=== PATIENT | female | born 1940 | race Caucasian/White ===

== ENCOUNTER 2025-03-25 07:33 | Outpatient (REF) | payer SELFPAY ==
[2025-03-25 07:40] LABS: MANUAL DIFF FLAG NO
--- OUTSIDE RECORDS SUMMARY | 2025-03-25 07:41 | XMS_ITS | Clinical Summary ---
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 Name Role Phone Kirk Flores MD Primary Care Provider [phone] Medical History Medical History Date Comments Essential hypertension DX:Essent ial hypertension Thyroid disorder DX:Thyroid diso rder Asthma DX:Asthma Social History Tobacco Use Types Packs/Day Years Used Date Smoking Tobacco: Former Cigarettes 0 Q uit: 08/15/1990 Smokeless Tobacco: Never Alcohol Use Standard Drinks/Week Comments Not Asked 0 (1 standard drink = 0.6 oz pur e alcohol) Comments Unknown Sex and Gender Information Value Date Recorded Sex Assigned at Not on file Legal Sex Female 2:40 PM EST Gender Identity Not on file Sexual Orientation Not on file Last Filed Vital Signs Vital Sign Reading Time Taken Comments Blood Pressure - - Pulse - - Temperature - - Respiratory Rate - - Oxygen Saturation - - Inhaled Oxygen Concentration - - Weight 117 kg (258 lb) 08/12/2021 2:01 PM EDT Height 165.1 cm (5' 5 ) 08/12/2021 2:01 PM EDT Body Mass Index 42.93 08/12/2021 2:01 PM EDT Plan of Treatment Health Maintenance Due Date Last Done Comments DTaP,Tdap,and Td Vaccines (1 - Tdap) 1960 Zoster Vaccines (1 of 2) 1991 RSV Immunization Adult Patients (1 - 1-dose 75+ series) 2016 Pneumococcal Vaccine: 50+ Years (2 of 2 - PCV) 06/13/2019 06/12/2018 Cholesterol Screening (Lipid Panel) 03/08/2022 Falls Risk Assessment 03/08/2022 Osteoporosis Screening (Bone Density Screening) 03/08/2022 Social Influencers of Health Screening 03/08/2022 Hypertension/CHF/CAD Annual BMP Blood Test 03/24/2022 Medicare Annual Wellness Visit 10/03/2023 10/02/2022 Depression Screening 04/09/2024 COVID-19 Vaccine ( season) 2024 Influenza Vaccine (#1) 2024 3, 01/17/2022, 01/03/2021, Additional history exists HIB Vaccines Aged Out No longer eligi ble based on patient's age to complete this topic HPV Vaccines Aged Out No longer eligi ble based on patient's age to complete this topic Hepatitis A Vaccines Aged Out No long er eligible based on patient's age to complete this topic Hepatitis B Vaccines Aged Out No long er eligible based on patient's age to complete this topic IPV Vaccines Aged Out No longer eligi ble based on patient's age to complete this topic MMR Vaccines Aged Out No longer eligi ble based on patient's age to complete this topic Meningococcal ACWY Vaccine Aged Out N o longer eligible based on patient's age to complete this topic Meningococcal B Vaccine Aged Out No l onger eligible based on patient's age to complete this topic RSV Immunization Patients Under 20 months Aged Out No longer eligible based on patient's age to complete this topic Varicella Vaccines Aged Out No longer eligible based on patient's age to complete this topic Insurance MEDICARE [facility] Advance Directives Documents on File Type Date Recorded 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
--- OUTSIDE RECORDS SUMMARY | 2025-03-25 07:41 | XMS_ITS | Encounter Summary ---
Author Organization [facility] Address [address] [place] [address] Care Team Providers Care Property Administrator Name Role Phone Kirk Flores MD Primary Care Provider Encounter Details Date Type Department Care Team (Late st Contact Info) Description 11/11/2024 Lab Requisition [facility] - Main Lab [address] [place] [id number] Kody Izquierdo MD [address] [address] Urinary tract infection, site not specified Social History Tobacco Use Types Packs/Day Years [...] on file Sexual Orientation Not on file documented as of this encounter Plan of Treatment Not on file documented as of this encounter Procedures Procedure Name Priority Date/Time Associated Diagnosis Comments BACTERIAL IDENTIFICATION AND SUSCEPTIBILITY, AEROBIC Routine 11/10/2024 12:00 AM EDT Urinary tract infection, site not specified documented in this encounter Results * (ABNORMAL) Bacterial identification and susceptibility, aerobic (11/10/2024 12:00 AM EDT) Culture, Bacterial ID and Sensitivity Escherichia coli(A) MICHELLE 11/13/2024 7:57 AM EDT [facility] Comment: This is an edited result. Previous organism was Gram negative bacilli on 11/12/2024 at 0753 EDT. Other Urine specimen from urethra / Unknown 11/10/2024 11/11/2024 10:18 AM EDT Narrative Organism Antibiotic Method Susceptibility Escherichia coli Amoxicillin/Clavulanate MICHELLE <=2 ug/ml: Susceptible Escherichia coli Ampicillin/Sulbactam MICHELLE <=2 ug/ml: Susceptible Escherichia coli Piperacillin/Tazobactam MICHELLE <=4 ug/ml: Susceptible Escherichia coli Cefazolin (Urine) MICHELLE <=1 ug/ml: Susceptible Escherichia coli Cefoxitin MICHELLE <=4 ug/ml: Susceptible Escherichia coli Ceftazidime MICHELLE <=0.5 ug/ml: Susceptible Escherichia coli Ceftriaxone MICHELLE <=0.25 ug/ml: Susceptible Escherichia coli Cefepime MICHELLE <=0.12 ug/ml: Susceptible Escherichia coli Meropenem MICHELLE <=0.25 ug/ml: Susceptible Escherichia coli Amikacin MICHELLE 4 ug/ml: Susceptible Escherichia coli Gentamicin MICHELLE <=1 ug/ml: Susceptible Escherichia coli Ciprofloxacin MICHELLE <=0.06 ug/ml: Susceptible Escherichia coli Levofloxacin MICHELLE <=0.12 ug/ml: Susceptible Escherichia coli Nitrofurantoin MICHELLE <=16 ug/ml: Susceptible Escherichia coli Trimethoprim/Sulfamethoxazole MICHELLE <=20 ug/ml: Susceptible Kody Izquierdo MD LAB MICROBIOLOGY - G ENERAL ORDERABLES Final Result [facility] [address] [place] [address], documented in this encounter Visit Diagnoses Diagnosis Urinary tract infection, site not specified documented in this encounter Care Teams Property Administrator Relationship Specialty Start Date End Date Kirk Flores MD [address] [place] [id number] PCP - General Internal Medicine 12/22/15 documented as of this encounter
--- OUTSIDE RECORDS SUMMARY | 2025-03-25 07:41 | XMS_ITS ---
Author Organization [facility] Care Team Providers Care Hydrogen Plant Operations Manager Name Role Phone Breann Sheth Unavailable Unavailable Chantel Lopez Unavailable Unavailable Berenice Ramos Unavailable Unavailable Juana Schwarz Unavailable Unavailable Mireya Delgadillo Unavailable Unavailable Allergies and adverse reactions Code CodeSystem Substance Reaction Severity StartDate Concern Status 3640 RXNORM Doxycycline Unknown 06/09/[address] Penicillins Unknown 06/09/[address] Sulfa Antibiotics Unknown 06/09/2022 active 33058 RXNORM Sulfamethoxazole Unknown 06/09/20[place] [address] RXNORM Trimethoprim Unknown 06/09/2022 active Care Team Name Role Address Phone Organization Dates Berenice Ramos PCP [address] [facility] [address], [place], [address], [facility] (Office): [facility] 06/09/2022 - 06/16/2022 Breann Sheth [address] [place], [address], [facility] (Office): [facility] 06/09/2022 - 06/16/2022 Chantel Lopez [address] [place] [address] [address], [place], [address], [facility] (Office): [facility] 06/09/2022 - 06/16/2022 Juana Schwarz [address], [place], [address], [facility] (Office): [facility] 06/09/2022 - 06/16/2022 Mireya Leona [address], [place], [address], [facility] (Office): [facility] 06/09/2022 - 06/16/2022 Immunizations Immunization Status Vaccine Details Vaccine Code CodeSystem Date Notes Influenza completed Influenza, split virus, trivalent, injectable, contains preservative 141 CVX created date: 06/10/2022 administer ed date: 01/17/2022 TB 1 Step Mantoux (PPD) completed tuberculin skin test; unspecified formulation lotNumber: [id number] expiry: 09/07/2024 Mfg: sanofi Pasreur Given 0.1 ml Right Forearm intradermally 98 CVX created date: 06/10/2022 consent date: 06/10/2022 administer ed date: 06/10/2022 SARS-COV-2 (COVID-19) completed SARS-COV-2 (COVID-19) vaccine, mRNA, spike protein, LNP, preservative free, 30 mcg/0.3mL dose, toshia-sucrose formulation Mfg: Beacon Reader Step 2 of Multi-step with next step required 217 CVX created date: 06/10/2022 administer ed date: 06/04/2020 SARS-COV-2 (COVID-19) completed SARS-COV-2 (COVID-19) vaccine, mRNA, spike protein, LNP, preservative free, 30 mcg/0.3mL dose, toshia-sucrose formulation Mfg: Pfizer LoopIt BioNTech Step 1 of Multi-step with next step required 217 CVX created date: 06/10/2022 administer ed date: 05/14/2020 SARS-COV-2 (COVID-19 BOOSTER) completed SARS-COV-2 (COVID-19) vaccine, mRNA, spike protein, LNP, preservative free, 30 mcg/0.3mL dose, toshia-sucrose formulation Mfg: Gander Mountainech 217 CVX created date: 06/10/2022 administer ed date: 01/17/2022 Bivalent Booster SARS-COV-2 (COVID-19 BOOSTER) completed SARS-COV-2 (COVID-19) vaccine, mRNA, spike protein, LNP, preservative free, 30 mcg/0.3mL dose, toshia-sucrose formulation Mfg: Beacon Reader 217 CVX created date: 06/10/2022 administer ed date: 08/05/2021 Booster #2 SARS-COV-2 (COVID-19 BOOSTER) completed SARS-COV-2 (COVID-19) vaccine, mRNA, spike protein, LNP, preservative free, 30 mcg/0.3mL dose, toshia-sucrose formulation Mfg: Beacon Reader 217 CVX created date: 06/10/2022 administer ed date: 01/03/2021 Booster #1 Mental Status Section Date Assessment Total Score Description 06/16/2022 CAM 0 No delirium ind icated 06/14/2022 BIMS 13 cognitively int act CAM 0 No delirium ind icated PHQ-9 01 minimal depress ion Insurance Providers Coverage Status Coverage Type Relationship to Subscriber Member Identifier Subscriber Identifier Group Identifier Payer Identifier and Other information Code: 1 Code System OID:[id number] .[id number]. 221.5 Code System Name: Source of Payment Typology (PHDSC) Display: Medicare Translation: Code: [place] Code System: OID:[id number] .[id number]. 255.1336 Code System Name: Insurance Type Code ([id number]) Display Name: Medicare Part A 2018 Code: 349 Code System OID:[id number] .[id number]. 221.5 Code System Name: Source of Payment Typology (PHDSC) Display: Other Translation: Code: C1 Code System: OID:[id number] .1.360849.6. 255.1336 Code System Name: Insurance Type Code ([id number]) Display Name: Commercial Insurance Code: SELF Code System Name: HL7 RoleCode Code System OID:[id number] [id number] Display Name: Self [id number] Root: [id number] Payer Identifier: Root: [id number] Extension: [id number] Payer Name: [facility] Address: [facility] City: [place] State: [place] Country: [place] Telecom: [phone] Problems Problem # Description Date of onset Resolved Date Code CodeSystem Concern Status 1 ANXIETY DISORDER, UNSPECIFIED 06/10/[address] active 2 ESSENTIAL (PRIMARY) HYPERTENSION 06/10/[address] active 3 HYPERLIPIDEMIA, UNSPECIFIED 06/10/[address] active 4 HYPOTHYROIDISM, UNSPECIFIED 06/10/[address] active 5 SLEEP APNEA, UNSPECIFIED 06/10/[address] active 6 UNILATERAL PRIMARY OSTEOARTHRITIS, RIGHT KNEE 06/10/[address] active 7 UNSPECIFIED HYDRONEPHROSIS 06/10/[address] active 8 CHRONIC OBSTRUCTIVE PULMONARY DISEASE, UNSPECIFIED 06/09/[address] active 9 DIFFICULTY IN WALKING, NOT ELSEWHERE CLASSIFIED 06/09/[address] active 10 EFFUSION, RIGHT KNEE 06/09/[address] active 11 MUSCLE WEAKNESS (GENERALIZED) 06/09/[address] active 12 OBSTRUCTIVE SLEEP APNEA (ADULT) (PEDIATRIC) 06/09/[address] active 13 OTHER ASTHMA 06/09/[address] acti ve 14 PREDIABETES 06/09/[address] activ e 15 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], RIGHT KNEE 06/09/[address] active 16 UNSPECIFIED MOOD [AFFECTIVE] DISORDER 06/09/[address] active 17 UNSTEADINESS ON FEET 06/09/[address] active 18 ACUTE BRONCHITIS DUE TO RESPIRATORY SYNCYTIAL VIRUS 04/25/2018 06/08/[address] completed 19 CHRONIC OBSTRUCTIVE PULMONARY DISEASE WITH (ACUTE) EXACERBATION 04/25/2018 06/11/[address] completed 20 DIFFICULTY IN WALKING, NOT ELSEWHERE CLASSIFIED 04/25/2018 06/11/[address] completed 21 MUSCLE WEAKNESS (GENERALIZED) 04/25/2018 06/11/[address] completed 22 RESPIRATORY SYNCYTIAL VIRUS PNEUMONIA 04/25/2018 06/08/[address] completed 23 SHORTNESS OF BREATH 04/25/2018 06/08/[address] completed Reason for Referral No Reasons for Referral Entered Social History Social History Observation Description Start Date End Date Code Code System Current Smoking Status Tobacco smoking consumption unknown 304787598 SNOMED CT Sex Assigned At Female 1940 [address]-2 [facility] Gender Identity Sexual Orientation Vital Signs Code Code System Vitals Name Values and Units Timing Information 9279-1 [facility] Respiratory Rate Value=17.0 Units=/m in 06/16/2022 39276-9 [facility] Pain Level Value=0.0 06/16/2022 8462-4 [facility] Blood Pressure-Diastolic Value=73 Un its=mmHg 06/16/2022 8480-6 [facility] Blood Pressure-Systolic Wlzzp=146 Un its=mmHg 06/16/2022 8310-5 [facility] Body Temperature Value=97.1 Units= F 06/16/2022 8867-4 [facility] Heart rate Value=61.0 Units=/min 01/2023 44890-7 [facility] O2 % BldC Oximetry Value=94.0 Units= % 06/16/2022 90590-5 [facility] Weight Ckmcs=693.4 Units=Lbs 10/2022 8302-2 [facility] Height Value=64.0 Units=Inches 04/30/2018
--- OUTSIDE RECORDS SUMMARY | 2025-03-25 07:41 | XMS_ITS | Data Portability ---
Author Organization [place] [facility] Address [address] [place] [id number] Care Team Providers Care Extruder Tender Name Role Phone PROSPERROSA MARIA Primary Care Provider Assessment Encounter Date Assessment Date Assessment LastModified by Organization Details LastModified Time 04/08/2021 04/08/2021 80 YO F to be se en by today. New to the service and to provider. Did call pt as we arrived to her home as there was no answer despite ringing doorbell x3. She did answer and stated she attempted to cancel he appt w/ this am as she called EMS at 400 am d/t concern of having a heart attack. DId not see or eval patient d/t the above. [email or web address] Not available 04/08/2021 14:36:41 05/20/2021 05/20/2021 Overview/History : 81 year old female new to with history of O2 dependent 3-4LPM with COPD; HTN; hypothyroid being seen today for a 2 days history of neck and back pain. She saw her PCP 2 days ago as she woke with initially neck spasm more than back pain for which her doctor prescribed cyclobenzaprine . Yesterday the neck spasm was pretty much gone but lateral ROM limited still. This AM woke up with sharp, grabbing, spasm pain of mid back 10/10 when it grabs her. Little relief with muscle relaxant. Pain non-radiating, mostly on right side with no numbness or tingling of arms or legs. No weakness of extremities; no bowel or bladder incontinence. No constipation. Movement and coughing makes pain worse. No fever or chills. Has applied heat, no ice. Baseline shorntess of breath and cough with COPD. No trauma or injury Exam: O2 dependent with noted exertional dyspnea for which she states her baseline. O2 3lpm with sats 89% but usually uses 4lpm with exertion. Notable grabbing pain with little movement, mostly right paraspinous radiating out to flank area. Some point tenderness over upper lumbar area. No cervical spine point tenderness; right lateral neck tightness. No motor or strength deficits DDx considered, but not limited to: Acute lumbar/thoracic muscle spasm: palpable tightness over muscles Acute spontaneous compression fracture: considered due to habitus, co-morbidities Cauda Equina syndrome: no saddle parasthesia, weakness, bowel or bladder issues Work up/Results: Thoracic and lumbar spine xrays ordered Plan/Discussion: -Discussed pain relieving techniques with ice/heat -Short trial if NSAID with nexium -Stretching ? PT pending xray results -ED precautions given Proper Personal Protective Equipment (PPE), including gloves, eye protection and masks were donned and doffed appropriately and all equipment cleaned using approved technique with germicidal disposable wipes prior to and after care of this patient according to [facility]'s infection prevention protocols. [email or web address] Not available 05/20/2021 13:34:49 06/02/2021 06/02/2021 Overview/History :[age] yo female who is established with and is new to this provider with COPD, depression, HTN, OA, and glaucoma being seen for cough, headache, nausea, fatigue, shortness of breath, and not feeling well for the past three days Exam: elevated temp, tachy, tachypnic, mild-mod acute respiratory distress upon arrival, pt barely able to ambulate from chair to open the door, no speaking in full sentences secondary to SOB, breathing improves some with rest, tachy rate, regular rhythm, lungs with expiratory wheezes throughout, BS present, abd nontender with palp, no pedal edema DDx considered, but not limited to:COPD exacerbation, pneumonia, COVID, CHF, sepsis, PE Work up/Results:Rapid COVID-NEG Plan/Discussion:Pt with obvious respiratory distress upon arrival with underlying COPD. Pt lives alone. Started albuterol/atrovent neb with minimal improvement. Discussed advised escaltion to ED which pt was agreeable with. Contacted 911, stayed with pt until arrival and assisted with gathering belongings to take to the hospital. Proper Personal Protective Equipment (PPE), was donned and doffed appropriately and all equipment cleaned using approved technique with germicidal disposable wipes prior to and after care of this patient according to [facility]'s infection prevention protocols. In order to obtain further information and compare any laboratory results/values, I have accessed old patient records. This information was pertinent in my medical decision making today. Time On Scene with Patient: 00:36:17 - Referred - Point of Care: Emergency Department [email or web address] Not available 06/02/2021 16:42:46 Plan of Treatment Reminders Order Date Submit Date Provider Last Modified By Organization Details Last Modified Time Details Appointments None recorded. Lab rapid SARS CoV 2 Ag, QL IA, respiratory specimen 2021 022 [email or web address] [facility], [address] [place] [address], [phone], 16:18:23 Referral None recorded. Procedures None recorded. Surgeries None recorded. Imaging XR, entire spine 2021 022 [facility] ([facility]), [address] [place] [address], [id number], 2 18:25:24 [facility], [facility]acral spine [facility] [address] [place] [address], [id number], 18:25:59 Medication Orders None recorded. Patient TargetsNo targets recorded. Patient Instructions Encounter Date Encounter Id Patient Instructions Last Modified By Organization Details Last Modified Time 05/20/2021 [id number] -You were seen for neck and back pain -You may try ice for pain or continue applying moist heat to back -Take your OTC Advil 600mg 2-3 times a day for the next 4-5 days along with taking your nexium daily to avoid any GI upset. -Continue taking muscle relaxant -[facility] will be calling you with a time arriving for xray of your middle and low back. -Go to the ED if any worsening/intrac tatable pain, shortness of breath otherwise call your PCP for a follow up visit as you may need physical therapy depending on the results of your CXR manuela De Los Santos available 05/20/2021 13:22:11 06/02/2021 [id number] PLease go to the ER for further eval and treatment [email or web address] Not available 06/02/2021 16:18:02 Reason for Referral None Reported. Results Created Date Observation Date Name Description Value Unit Range Abnormal Flag Note LastModifiedBy Organization Detail LastModifiedTime 06/02/19 22 06/02/2021 rapid SARS CoV 2 Ag, QL IA, respi rator y speci men Covid-19 (ref: neg) negati ve Not Available [facility] [address] [place], [address], 06/02/2021 15:43:07 06/02/19 22 06/02/2021 rapid SARS CoV 2 Ag, QL IA, respi rator y speci men Control Visual ized/V alid Not Available [facility] [address] [place], [address], 06/02/2021 15:43:07 06/02/19 22 06/02/2021 rapid SARS CoV 2 Ag, QL IA, respi rator y speci men Location [facility], [facility], [address] [place] [address], [id number] Not Available [facility] [address] [place], [address], 06/02/2021 15:43:07 Result Notes None recorded. Procedures Surgical History Date Name Laterality Status Provider Name and Address Organization Details Recorded Time Nebulizer treatment - completed HELEN GARCIA [address] [place], [address], [place] [facility] 06/02/2021 16:27:11 Imaging Results None recorded. Procedure Notes None recorded. Medical Equipment None Reported. Medications Name Sig Start Date Stop Date Status Note LastModified by Organization Details LastModified Time latanoprost 0.005 % eye drops INSTILL 1 DROP IN BOTH EYES AT BEDTIME active Not Available Not Available No t Available levothyroxi ne 175 mcg tablet TAKE 1 TABLET BY MOUTH EVERY DAY EXCEPT SUNDAY active Not Available Not Available No t Available prednisone 10 mg tablet 05/20 completed Not Available Not Available Not Available albuterol sulfate 2.5 mg/3 mL (0.083 %) solution for nebulizatio n USE 1 AMPULE IN NEBULIZER EVERY 6 HOURS NEEDED FOR WHEEZING active Not Available Not Available No t Available azithromyci n 250 mg tablet 05/20 completed Not Available Not Available Not Available benzonatate 200 mg capsule TAKE 1 CAPSULE BY MOUTH THREE TIMES DAILY NEEDED FOR COUGH 05/20 completed Not Available Not Available Not Available prednisone 20 mg tablet TAKE 2 TABLETS BY MOUTH DAILY FOR 2 DAYS THEN TAKE 1 TABLET BY MOUTH DAILY FOR 2 DAYS THEN TAKE 1/2 TABLET BY MOUTH DAILY FOR 2 DAYS THEN STOP 05/20 completed Not Available Not Available Not Available ciprofloxac in 250 mg tablet TAKE 1 TABLET BY MOUTH EVERY 12 HOURS 05/20 completed Not Available Not Available Not Available citalopram 20 mg tablet TAKE 1 TABLET BY MOUTH EVERY DAY active Not Available Not Available No t Available triamcinolo ne acetonide 0.025 % topical cream APPLY TOPICALLY TO THE AFFECTED AREA THREE TIMES DAILY FOR 7 DAYS active Not Available Not Available No t Available levofloxaci n 500 mg tablet TAKE 1 TABLET BY MOUTH EVERY 24 HOURS 05/20 completed Not Available Not Available Not Available methylpredn isolone 4 mg tablets in a dose pack FOLLOW PACKAGE DIRECTION S 05/20 completed Not Available Not Available Not Available albuterol sulfate HFA 90 mcg/actuati on aerosol inhaler INHALE 2 PUFFS BY MOUTH EVERY 4 TO 6 HOURS NEEDED active Not Available Not Available No t Available azithromyci n 500 mg tablet TAKE 1 TABLET BY MOUTH DAILY UNTIL FINISHED (3 DAYS) 05/20 completed Not Available Not Available Not Available cyclobenzap rine 5 mg tablet TAKE 1 TABLET BY MOUTH THREE TIMES DAILY NEEDED active Not Available Not Available No t Available nitrofurant oin monohydrate /macrocryst als 100 mg capsule TAKE 1 CAPSULE BY MOUTH TWICE DAILY FOR 5 DAYS 05/20 completed Not Available Not Available Not Available losartan 100 mg-hydrochl orothiazide 12.5 mg tablet TAKE 1 TABLET BY MOUTH EVERY DAY active Not Available Not Available No t Available Nexium active Not Available Not Availa ble Not Available Incruse Ellipta 62.5 mcg/actuati on powder for inhalation INHALE 1 PUFF BY MOUTH AT THE SAME TIME EVERY DAY active Not Available Not Available No t Available Vitals Date Recorded Heart rate Respiratory rate Oxygen saturation Inhaled oxygen flow rate Body temperature Systolic And Diastolic Provider Name and Address Organization Details Last Updated DateTime 2 87 /min 20 /min 89 % 3 L/min 98.1 [degF] 122/78 mm[Hg] Not Available [facility] 2 12:36:10 Date Recorded Oxygen saturation Inhaled oxygen flow rate Respiratory rate Oxygen saturation Inhaled oxygen flow rate Heart rate Respiratory rate Provider Name and Address Organization Details Last Updated DateTime 2 93 % 3 L/min 32 /min 88 % 3 L/min 105 /min 28 /min HELEN GARCIA [address] [place], [address], [place] [facility] 16:14:13 Date Recorded Heart rate Body temperature Systolic And Diastolic Provider Name and Address Organization Details Last Updated DateTime 06/02/2021 103 /min 101.7 [degF] 128/60 mm[Hg] Not Available [facility] 06/02/2021 15:42:01 Social History Question Answer Notes LastModified by Organizat ion Details LastModified Time Tobacco Smoking Status Former Smoker Ivory Costa NP [address], [place], [address], [place] [facility] 05/20/2021 12:33:37 Do You Have An Advance Directive? No [employer] Information not available 05/20/2021 What Is Your Code Status? Full Code [employer] Information not available 05/20/2021 Within The Past 12 Months, Has It Happened That The Food You Bought Just Didn't Last And You Didn't Have Money To Get More. No [employer] Information not available 05/20/2021 Within The Past 12 Months, Have You Worried That Your Food Would Run Out Before You Got Money To Buy More. No ORVIBOwell Information not available 05/20/2021 Fall Risk: Do You Feel Unsteady When Standing Or Walking? No OR[employer]Owell Information not available 05/20/2021 Excessive Alcohol Or Drug Use No ORVIBOwell Information not available 05/20/2021 Does This Patient Have A PCP? Yes [email or web address] Information not available 05/20/2021 What Is Your Housing Situation Today? I Have [facility] Information not available 05/20/2021 How Many Years Have You Smoked Tobacco? 36 [facility] Information not available 05/20/2021 Sex: Unknown Functional Status Question Answer Note LastModified by Organizat ion Details LastModified Time Do you use any illicit or recreational drugs? No [facility] Information not available 05/20/2021 Do you or have you ever used any other forms of tobacco or nicotine? No [facility] Information not available 05/20/2021 What is your level of alcohol consumption? None [facility] Information not available 05/20/2021 Mental Status None recorded. Family History Relationship Description Onset Age of this Age Resolved Age Notes LastModified by Organization Details LastModified Time Father Chronic obstructive pulmonary disease [email or web address] Not available 05/20 12:31:35 Notes:Bleeding disorder: mot her Medical History Condition Response Diabetes N Coronary Artery Disease N CHF N Parkinson's Disease N Cancer N Stroke N Dementia N Hypothyroidism N Asthma N COPD Y Depression Y High Cholesterol N Rheumatoid Arthritis N Pulmonary Embolism N Hypertension Y Osteoporosis N A-fib N Kidney Disease N Gynecological HistoryNo gynecological history recorded. Obstetrics History GPAL:G 0 P 0 0 0 0 Past Encounters Encounter ID Performer Location Encounter Start Date Encounter Closed Date Diagnosis/Indication Diagnosis SNOMED-CT Code Diagnosis ICD10 Code Diagnosis IMO Codes Diagnosis Note [id number] HELEN Lindsay [facility] [address] [facility] [place] [address] 04/08/2021 14:12:36 04/08/2021 14:24:22 [id number] Ivory Costa NP [facility] [address] [facility] [place] [address] 05/20/2021 12:22:33 05/24/2021 15:06:22 Thoracic back pain 926856808 M54.6 Low back pain 650034829 M54.50 [id number] HELEN GARCIA [facility] [address] [facility] [place] [address] 06/02/2021 15:35:33 06/03/2021 16:00:58 Exposure to SARS-CoV-2 173380555 Z20.822 Acute exac erbation of chronic obstructive pulmonary disease 676882675 J44.1 Fever 450375430 R50.9 Acute resp iratory distress 439587467 R06.03 Health Concerns Section Related Observation LastModified by Organization Detai ls LastModified Time None Recorded Concern Status LastModified by Organization Details LastModified Time None Recorded Advance Directives Directive N: Payers Insurance Date Sequence Insurance Name Policy Number Policy Segura Covered Member ID Segura Member ID Guarantor Name 05/24/2021 1 [place] [employer] Nevin G Ed [id number] Nevin Ward 05/24/2021 2 [place] [id number] Nevin Ward [id number] Nevin Ward 04/07/2021 1 *SELF PAY* Nevin Ward [id number] Nevin Ward 06/02/2021 2 [place] [id number] Nevin Ward [id number] Nevin Ward Notes Date Note Type Note Provider Name and Address Organization Details Recorded Time 1 text/html 80 YO F to be seen by today. New to the service and to provider.Did call pt as we arrived to her home as there was no answer despite ringing doorbell x3.She did answer and stated she attempted to cancel he appt w/ this am as she called EMS at 400 am d/t concern of having a heart attack. DId not see or eval patient d/t the above. HELEN Lind [address] [place], [address], [place] [facility] 04/08/2021 14:36:51 2 text/html ROS as noted in the HPI 81 year old female new to with history of O2 dependent 3-4LPM with COPD; HTN; hypothyroid being seen today for a 2 days history of neck and back pain. She saw her PCP 2 days ago as she woke with initially neck spasm more than back pain for which her doctor prescribed cyclobenzaprine for spasms stating her muscles were very tight; she feels they don't really help. Yesterday the neck spasm was pretty much gone but lateral ROM limited still. This AM woke up with sharp, grabbing, spasm pain of mid back 10/10 when it grabs her. Little relief with muscle relaxant. Pain non-radiating, mostly on right side with no numbness or tingling of arms or legs. No weakness of extremities; no bowel or bladder incontinence. No constipation. Movement and coughing makes pain worse. No fever or chills. Has applied heat, no ice. Baseline shorntess of breath and cough with COPD. No noted trauma or injury Ivory Costa NP [address], [place], [address], [place] [facility] 05/20/2021 13:41:47 2 text/html 81 yo female with cough, congestion, wheezing, shortness of breath, fatigue, nausea, headache, loss of appetite, and not feeling well for the past three days. Is vaccinated for COVID. No known ill contacts. Has COPD. Lives alone. Denies chest pain, LE swelling, CHF. HELEN GARCIA [address], [place], [address], [place] [facility] 06/02/2021 16:44:16 OBGyn Episode No OBEpisode recorded.
[2025-03-25 08:02] LABS: Hematocrit 37.5 % (37.0-47.0); Hemoglobin 12.0 g/dl (12.0-16.0); Imm Gran Abs Auto 0.07 X10*3/uL (0.00-0.03); Imm Gran Pct Auto 0.8 % (0.0-0.4); Lymphocytes Absolute Auto 1.6 X10*3/uL (1.2-4.9); Mean Corpuscular HGB Conc 32.0 g/dl (31.0-35.0); Mean Corpuscular Hemoglobin 28.6 pg (27.0-33.0); Mean Corpuscular Volume 89.5 fL (80.0-98.0); NRBC Abs Auto 0.000 X10*3/uL (0.0-0.012); NRBC Pct Auto 0.0 /100WBC (0.0-0.2); Platelet Count 242 X10*3/uL (160-400); Red Blood Count 4.19 X10*6/uL (4.20-5.50); White Blood Count 8.7 X10*3/uL (4.8-10.8)
[2025-03-25 08:26] LABS: Alanine Aminotransferase < 6 U/L (0-31); Albumin Level 3.5 g/dL (3.5-5.0); Alkaline Phosphatase 92 U/L (39-117); Anion Gap 13 (12-20); Aspartate Amino Transferase 24 U/L (5-31); Blood Urea Nitrogen 20 mg/dL (9-16); Calcium 10.0 mg/dL (8.4-10.2); Carbon Dioxide 28 mmol/L (22-29); Chloride 102 mmol/L (96-108); Estimated Glomerular Filt Rate 52; Potassium 4.7 mmol/L (3.3-5.1); Sodium 138 mmol/L (135-145); Total Protein 6.8 g/dL (6.5-8.0)
[2025-03-25 09:24] LABS: Free T4 (Free Thyroxine) 1.00 ng/dL (0.71-1.85)
== END 2025-03-25 07:34 | disposition home or self-care (01) ==
LOC: HO.MMNH2L 07:33
PROVIDERS: Visit Provider Physician Assistant Medical
DX: Z13.1 Encounter for screening for diabetes mellitus (principal); J43.9 Emphysema, unspecified; Z13.29 Encounter for screening for other suspected endocrine disorder; W19.XXXA Unspecified fall, initial encounter
CPT/HCPCS: 36415; 80053; 83036; 84439; 84443; 85025

== ENCOUNTER 2025-04-07 01:00 | Outpatient (REF) | payer MEDICARE, SELFPAY ==
[2025-04-07 10:03] LABS: Resp Syncy Virus RNA Qual PCR NEGATIVE (Negative); SARS COV2 PCR INHOUSE NEGATIVE (Negative)
== END 2025-04-07 01:01 | disposition home or self-care (01) ==
LOC: HO.MMNH2L 01:00
PROVIDERS: Visit Provider Physician Assistant Medical
DX: J10.1 Influenza due to other identified influenza virus with other respiratory manifestations (principal)
CPT/HCPCS: 87637